=== PATIENT | female | born 1980 | race Caucasian/White ===

== ENCOUNTER 2023-10-26 15:28 | Outpatient (REF) | payer OTHER, SELFPAY | END 2023-10-26 15:29 | disposition home or self-care (01) | LOC: LAB 15:28 | PROVIDERS: Visit Provider Surgery | DX: D22.5 Melanocytic nevi of trunk (principal) | CPT/HCPCS: 88305 ==

== ENCOUNTER 2024-03-12 08:32 | Outpatient (OUT) | payer OTHER, SELFPAY ==
--- NOTE | 2024-03-12 | XR_ITS ---
The [address] [address] Patient Name: ALICIA MANLEY MRN: [id number] date: 1980 Sex: F Assigned Patient Location: Current Patient Location: Accession/Order Number: [id number] Exam Date: 03/12/2024 08:45 Report Date: 03/13/2024 10:20 At the request of: INNA MORLEY Procedure: XR elbow LT min 3V PROCEDURE: XR elbow LT min 3V HISTORY: LEFT ELBOW PAIN COMPARISON: None. FINDINGS: BONES:No fracture, acute abnormality, or significant arthropathy. SOFT TISSUES:Soft tissue thickening posterior to the elbow. EFFUSION:None visible. OTHER: Negative. XR/XR elbow LT min 3V IMPRESSION: 1. Posterior soft tissue swelling suggestive of olecranon bursitis. 2. No acute bone abnormality or joint effusion. Electronically authenticated by: INNA BROWN Date: 03/13/2024 10:20
== END 2024-03-12 08:33 | disposition home or self-care (01) ==
LOC: EC 08:32
PROVIDERS: Visit Provider Orthopaedic Surgery
DX: M25.522 Pain in left elbow (principal)
CPT/HCPCS: 73080